=== PATIENT | male | born 1970 | race Caucasian/White ===

== ENCOUNTER 2022-06-06 22:53 | Emergency (ER) | payer MEDICAID ==
[~2022-06-06] VITALS: Ht 162.6 cm; Wt 59.0 kg
[2022-06-06 22:55] VITALS: BP 149/100
--- NOTE | 2022-06-06 22:58 | NUR ---
TO LOBBY A/W BED AMBULATORY
[2022-06-07] MEDS ORDERED: PHENYLEPHRINE 0.5% 15 ML BTL NS ONE (01:10)
[2022-06-07] MEDS ORDERED: TRANEXAMIC ACID 1,000 MG/10 ML VIAL MC ONE ×2 (01:10→03:20)
[2022-06-07] MEDS ORDERED: PHENYLEPHRINE 0.25% 15 ML BTL NS ONE (01:20)
[2022-06-07] MEDS ORDERED: PHENYLEPHRINE 1% 15 ML BTL NS ONE (01:20)
[2022-06-07 01:26] LABS: BASOPHILS % (AUTO) 0.3 % (0.0-2.0); EOSINOPHILS % (AUTO) 0.4 % (0.0-4.0); HEMATOCRIT 23.3 % (36-52); HEMOGLOBIN 8.1 g/dL (12.0-18.0); LYMPHOCYTES # (AUTO) 1.5 K/uL (2.0-11.5); LYMPHOCYTES % (AUTO) 14.9 % (20.5-51.1); MEAN CORPUSCULAR HEMOGLOBIN 33 pg (27-31); MEAN CORPUSCULAR HGB CONC 35 g/dL (33-37); MEAN CORPUSCULAR VOLUME 93.9 fL (80-94); MONOCYTES # (AUTO) 0.5 K/uL (0.8-1.0); MONOCYTES % (AUTO) 5.2 % (1.7-9.3); NEUTROPHILS # (AUTO) 8.2 K/uL (1.8-7.7); NEUTROPHILS % (AUTO) 79.2 % (42.2-75.2); PLATELET COUNT (AUTO) 133 K/uL (140-450); RED BLOOD CELL COUNT(AUTO) 2.48 MIL/uL (4.20-6.10); WHITE BLOOD COUNT (AUTO) 10.3 K/uL (4.8-10.8)
--- NOTE | 2022-06-07 01:35 | NUR ---
MEDICATED BY ERMD, PATIENT TOLERATED WELL.
[2022-06-07 01:49] LABS: ALBUMIN 3.9 g/dL (3.4-5.0); ANION GAP 11.9 (8-16); CARBON DIOXIDE 26.7 mmol/L (21-32); CREATININE 0.8 mg/dL (0.6-1.3); POTASSIUM 3.6 mmol/L (3.5-5.1); TOTAL BILIRUBIN 0.3 mg/dL (0.0-1.0)
--- NOTE | 2022-06-07 03:35 | NUR ---
NASAL PACKING WAS DONE BY ERMJamari, PATIENT TOLERATED BY ERMJamari
--- NOTE | 2022-06-07 03:40 | NUR ---
REPORT GIVEN TO FLAVIA DRUMMOND
--- NOTE | 2022-06-07 03:45 | NUR ---
Patient to be transferred to [facility]. Is being transferred due to HIGHER LEVEL OF CARE. Receiving facility has accepting physician and available space. ER physician has signed transfer form. Patient or responsible alliance party has agreed to transfer and signed form. Patient belongings inventoried and will be sent with patient. Copy of nursing notes, lab reports, EKG, Physicians Orders and X-rays to be sent with patient. Report called to FLAVIA RN at receiving facility. [facility] ambulance service has been called for transfer. ETA is 60-90 MINUTES.
--- NOTE | 2022-06-07 03:57 | NUR ---
BELONGINGS LIST DONE.
[2022-06-07 05:45] VITALS: BP 140/87
--- NOTE | 2022-06-07 05:45 | NUR ---
REPORT GIVEN TO [facility] STAFF.
== END 2022-06-07 05:45 | disposition short-term general hospital (02) ==
LOC: MED 22:53
DX: R04.0 Epistaxis (principal); D64.9 Anemia, unspecified
CPT/HCPCS: 30905; 36415; 80053; 85025; 99285; J3490

== ENCOUNTER 2022-06-13 12:27 | Emergency (ER) | payer MEDICAID ==
[~2022-06-13] VITALS: Ht 165.1 cm; Wt 59.0 kg
[2022-06-13 12:38] VITALS: BP 125/78
--- NOTE | 2022-06-13 12:54 | NUR ---
52/M WALKED IN REQUESTING NASAL PACKING TO BE REMOVED. PT WAS SEEN HERE ON 06/06 FOR UNCONTROLLED EPISTAXIS AND WAS PLACED ON NASAL PACKING. PT WAS THEN TRANFERRED TO [facility] [facility] FOR HIGHER LEVEL OF CARE. PATIENT STATES PATIENT WAS DC FROM [facility], STATING NO SX WAS NEEDED. PT REPORTS SPECIALIST WANTED HIM TO REMOVE THE PACKING. PMH: DENIES
--- NOTE | 2022-06-13 13:32 | NUR ---
KIKO SIERRA AT PT SIDE FOR EVAL
--- NOTE | 2022-06-13 13:35 | NUR ---
KIKO SIERRA AT PT SIDE FOR REMOVAL, NO BLEEDING NOTED UPON REMOVAL
--- NOTE | 2022-06-13 14:04 | NUR ---
PT HECTOR W/O PAPERWORK, NOT FOUND IN LOBBY OR OUTSIDE LOBBY
== END 2022-06-13 14:05 | disposition home or self-care (01) ==
LOC: MED 12:27
DX: Z48.01 Encounter for change or removal of surgical wound dressing (principal)
CPT/HCPCS: 99281